=== PATIENT | male | born 1975 | race Two or more races ===

== ENCOUNTER 2024-01-25 20:19 | Emergency (ER) | payer MEDICAID, SELFPAY ==
[2024-01-25 20:20] VITALS: BP 152/110; PULSE 138; RESP 16; TEMP 36.5; O2SAT 97
--- NOTE | 2024-01-25 20:54 | PC.NURSE ---
2053-ESCORTED PATIENT TO ROOM 15. PATIENT ENTERED ROOM AND IMMEDIATELY BEGAN LOOKING FOR OUTLET TO PLUG IN HIS CELL PHONE. I ADVISED PATIENT THERE WAS NO OUTLETS IN THIS ROOM. PATIENT STATED I'M TALKING TO MY AUNT AND I NEED AN OUTLET. I WILL JUST WAIT IN THE WAITING ROOM . I ADVISED PATIENT I DID NOT HAVE ANOTHER ROOM AT THIS TIME. PATIENT RETURNED TO WAITING ROOM PER HIS REQUEST.
--- NOTE | 2024-01-25 22:09 | ED.GENADULT ---
HPI - General Adult General Chief complaint: Alcohol Stated complaint: ETOH Time Seen by Provider: 01/25/24 22:09 History of Present Illness HPI narrative: This is a 48-year-old male presenting the ED after being picked up by police for wandering the streets. The patient has no physical complaints. He is requesting a dry pair of socks. He admits to drinking. He also says that the mosquitos are really bothering him. he was scratching his arms. He is also requesting a phone marketing ambassador. No other complaints Related Data Allergies Allergy/AdvReac Type Severity Reaction Status Date / Time No Known Allergies Allergy Verified 01/25/24 20:36 Exam Narrative: APPEARANCE: Patient can not sit sits still and is pacing from foot to foot Head: atraumatic. EYES: EOMI, NOSE: Atraumatic NECK: Trachea midline RESPIRATORY: No increased rate of breathing CTAB CARDIOVASCULAR: RRR, ABDOMINAL: Non-distended MUSCULOSKELETAl: No obvious deformities NEURO: Alert. Moving 4/4 extremities SKIN:: Warm, dry. Normal color PSYCHIATRIC: Normal affect Course Vital Signs Vital signs: Vital Signs Temperature 97.7 F 01/25/24 20:20 Pulse Rate 138 H 01/25/24 20:20 Respiratory Rate 16 01/25/24 20:20 Blood Pressure 152/110 H 01/25/24 20:20 Pulse Oximetry 97 01/25/24 20:20 Oxygen Delivery Room Air 01/25/24 20:20 Temperature 97.7 F 01/25/24 20:20 Pulse Rate 138 H 01/25/24 20:20 Respiratory Rate 16 01/25/24 20:20 Blood Pressure 152/110 H 01/25/24 20:20 Pulse Oximetry 97 01/25/24 20:20 Oxygen Delivery Room Air 01/25/24 20:20 Medical Decision Making MDM Narrative Medical decision making narrative: -Course: 48-year-old homeless male presenting by these for wandering the streets. Patient is scratching department complaining about mosquitos even aware inside. Suspect methamphetamine/abuse alcohol. He has no physical complaints at this time. He is able to hold a rational conversation. He is walking a steady gait. Patient was discharged. He was given 2 pairs of hospital socks. Vital Signs Vital Signs: Vital Signs Temperature 97.7 F 01/25/24 20:20 Pulse Rate 138 H 01/25/24 20:20 Respiratory Rate 16 01/25/24 20:20 Blood Pressure 152/110 H 01/25/24 20:20 Pulse Oximetry 97 01/25/24 20:20 Oxygen Delivery Room Air 01/25/24 20:20 Temperature 97.7 F 01/25/24 20:20 Pulse Rate 138 H 01/25/24 20:20 Respiratory Rate 16 01/25/24 20:20 Blood Pressure 152/110 H 01/25/24 20:20 Pulse Oximetry 97 01/25/24 20:20 Oxygen Delivery Room Air 01/25/24 20:20 Discharge Plan Discharge Clinical Impression: Alcoholic intoxication, Homeless Patient Disposition: Home, Self-Care Condition: Stable Instructions: Antibiotic Form Additional Instructions: Please report to a homeless retirement if you need somewhere to stay. Follow-up/Referrals: PHYSICIAN NOT ON STAFF,NONSTAFF [Primary Care Provider] -
== END 2024-01-25 22:26 | disposition home or self-care (01) ==
LOC: ANHED 22:18
PROVIDERS: Emergency Provider Emergency Medicine
DX: F10.129 Alcohol abuse with intoxication, unspecified (principal); Z59.00 Homelessness unspecified
CPT/HCPCS: 99283